=== PATIENT | female | born 1975 | race African-American/Black ===

== ENCOUNTER 2017-03-10 05:54 | Inpatient (IN) | payer OTHER ==
[2017-03-10] MEDS ORDERED: ceFOXitin 2 GM IVPREMIX* 2 GM/50 ML BAG IVPB ONE (07:07)
[2017-03-10] MEDS ORDERED: ceFOXitin 2 GM IVPREMIX* 2 GM/50 ML BAG ONE (07:24)
[2017-03-10] MEDS ORDERED: Sodium Citrate/Citric Acid* 15 ML UDC ONE (07:25)
[2017-03-10] MEDS ORDERED: Naloxone* 0.4 MG/ML 1 ML VIAL IV PRN ×2 (07:37→09:46)
[2017-03-10] MEDS ORDERED: Morphine PF AMP (0.5MG/ML)* 5 MG/10 ML AMP ONE (08:00)
[2017-03-10] MEDS ORDERED: Phenylephrine INJ* 10 MG/ML 1 ML VIAL (10 MG) ONE (08:35)
[2017-03-10] MEDS ORDERED: OXYTOCIN* 10 UNITS/ML 1 ML VIAL ONE (08:35)
[2017-03-10] MEDS ORDERED: Acetaminophen TAB* 325 MG PO PRN (09:38)
[2017-03-10] MEDS ORDERED: Glycerin ADULT SUPP PR PRN (09:38)
[2017-03-10] MEDS ORDERED: Dibucaine 1% 28.35 GM TUBE PR PRN (09:38)
[2017-03-10] MEDS ORDERED: Zolpidem TAB* 5 MG PO PRN (09:38)
[2017-03-10] MEDS ORDERED: Witch Hazel PAD* JAR TOPICAL PRN (09:38)
[2017-03-10] MEDS ORDERED: Nalbuphine* 20 MG/ML 1 ML VIAL IV PRN (09:46)
[2017-03-10] MEDS ORDERED: oxyCODONE/Acetamin 5/325 MG* TAB PO PRN (09:46)
[2017-03-10] MEDS ORDERED: Ondansetron INJ* 2 MG/ML VIAL IV PRN (09:46)
[2017-03-10] MEDS: Ibuprofen TAB* 400 MG PO SCH ×2 (11:57→19:48)
[2017-03-10] MEDS: Simethicone TAB* 80 MG TAB.CHEW PO SCH ×2 (14:34→17:31)
[2017-03-10] MEDS: Docusate CAP* 100 MG PO SCH (14:34)
[2017-03-11] MEDS ORDERED: oxyCODONE/Acetamin 5/325 MG* TAB PO PRN ×2 (02:00)
[2017-03-11] MEDS: Docusate CAP* 100 MG PO SCH ×3 (05:38→20:08)
[2017-03-11] MEDS: Simethicone TAB* 80 MG TAB.CHEW PO SCH ×4 (05:39→20:08)
[2017-03-11] MEDS: Ibuprofen TAB* 400 MG PO SCH (05:42)
[2017-03-11] MEDS ORDERED: Ferrous Gluconate TAB* 324 MG TAB PO SCH (09:00)
[2017-03-11 09:56] LABS: ABS Basophils 0.1 10^3/ul (0-0.2); ABS Eosinophils 0.4 10^3/ul (0-0.6); ABS Lymphocytes 1.7 10^3/ul (1.0-4.8); ABS Monocytes 0.6 10^3/ul (0-0.8); ABS Neutrophils 11.1 10^3/ul (1.5-7.7); ABS Nucleated RBC 0 10^3/ul; Eosinophil % 2.6 % (0-6); Hematocrit 34 % (35-47); Hemoglobin 11.4 g/dl (12.0-16.0); Lymphocyte % 12.4 % (25-47); Mean Corpuscular HGB Conc 34 g/dl (31-36); Mean Corpuscular Hemoglobin 34 pg (27-31); Mean Corpuscular Volume 102 fL (80-97); Mean Platelet Volume 8 um3 (7.4-10.4); Nucleated Red Blood Cells % 0.1; Platelet Count 358 10^3/ul (150-450); Red Blood Count 3.31 10^6/ul (4.0-5.4); Red Cell Distribution Width 15 % (10.5-15); White Blood Count 13.9 10^3/ul (3.5-10.8)
--- NOTE | 2017-03-11 15:05 | OP ---
DATE OF OPERATION: 03/10/17 - ROOM #[id number] DATE OF : 73 SURGEON: Kashif Gonsalves MD CHECK WRITING MACHINE OPERATOR: Kennedy Medellin MD ANESTHESIA: Spinal. PRE-OP DIAGNOSES: Intrauterine at 39 weeks, prior section, and desires surgical sterilization. POST-OP DIAGNOSES: Intrauterine at 39 weeks, prior section, and desires surgical sterilization. OPERATIVE PROCEDURE: Repeat low transverse section and bilateral fimbriectomy for sterilization. ESTIMATED BLOOD LOSS: 600 cc. SPECIMENS SENT TO PATHOLOGY: Bilateral tube of fimbriae and cord blood samples. FLUIDS: She received 1700 cc of IV crystalloid fluid. URINE OUTPUT: Clear, 500 cc. FINDINGS: Delivery of a male weighing 8 pounds 7 ounces with Apgars of 8 and 9 with clear fluid with placenta which was grossly intact with a 3-vessel cord noted. The uterus, adnexa, bowel, and bladder were all within normal limits and there were no complications. DESCRIPTION OF PROCEDURE: The patient was taken to the operating room where she was identified. She was placed on the operating table where a spinal anesthetic was obtained without difficulty. She was then placed in the supine position with a leftward tilt, prepped and draped in normal sterile fashion. A Pfannenstiel skin incision was made with a knife and carried to the underlying layer of fascia. The fascia was then nicked in the midline and extended laterally with curved Sarah scissors. The fascia was then grasped superiorly and inferiorly with Adolph clamps and dissected off sharply from the rectus muscle. The rectus muscle was in the midline bluntly. The peritoneum was identified, grasped with pickups, and entered sharply with Metzenbaum scissors and extended superiorly and inferiorly sharply. A bladder blade was inserted into the patient's abdomen. A bladder flap was created using Metzenbaum scissors over which the bladder blade was then reinserted. A low transverse uterine incision was made with a knife, extended laterally with bandage scissors. The amniotic sac was ruptured, the 's head was then grasped and delivered atraumatically. The rest of the 's body was then delivered. The cord was clamped and cut and was handed off to awaiting meter shop superintendent. Cord bloods were obtained. The placenta was removed manually. The uterus was then exteriorized, clear off all clot and debris using moist laparotomy sponges. The uterine incision was then closed using 0 Polysorb suture in a running locked fashion with a second imbricating layer of 0 Polysorb suture. Hemostasis was noted at the uterine incision. At this point, we proceeded to perform a bilateral fimbriectomy in the usual fashion. A portion of the right and left fimbriae was sent to Pathology. The uterus was then returned to patient's abdomen, the gutters were then cleared of all clot and debris using moist laparotomy sponges. All the sponges and instruments were removed from the patient's abdomen. The peritoneum was then closed using 3-0 Polysorb suture in a running fashion. The fascia was closed using 0 Polysorb suture in a running fashion. The skin was closed with 4-0 Monocryl subcuticular stitch. The patient tolerated the procedure well. Sponge , lap, and needle counts were correct x2. She was then transferred to recovery room area in stable condition. [id number] #: [id number] RUSTAM
[2017-03-12] MEDS: Ibuprofen TAB* 600 MG PO PRN ×2 (06:50→21:34)
[2017-03-12] MEDS: Docusate CAP* 100 MG PO SCH ×4 (08:58→21:34)
[2017-03-12] MEDS: Simethicone TAB* 80 MG TAB.CHEW PO SCH ×4 (08:58→21:34)
[2017-03-13 07:57] VITALS: BP 124/93
[2017-03-13] MEDS: Docusate CAP* 100 MG PO SCH (08:52)
[2017-03-13] MEDS: Ibuprofen TAB* 600 MG PO PRN (08:52)
[2017-03-13] MEDS: Simethicone TAB* 80 MG TAB.CHEW PO SCH (08:53)
== END 2017-03-13 11:54 | disposition home or self-care (01) | DRG 540 ==
LOC: MCHOB 05:54
PROVIDERS: ADMIT Obstetrics & Gynecology; ATTEND Obstetrics & Gynecology
PROC: 4A1HXCZ Monitoring of Products of Conception, Cardiac Rate, External Approach (ICD-10-PCS; 2017-03-10)
PROC: 0UB70ZZ Excision of Bilateral Fallopian Tubes, Open Approach (ICD-10-PCS; 2017-03-10)
PROC: 10D00Z1 Extraction of Products of Conception, Low, Open Approach (ICD-10-PCS; principal; 2017-03-10 07:57)
DX: O34.211 Maternal care for low transverse scar from previous cesarean delivery (principal); F17.210 Nicotine dependence, cigarettes, uncomplicated; O99.334 Smoking (tobacco) complicating childbirth; Z30.2 Encounter for sterilization; Z3A.39 39 weeks gestation of pregnancy; Z37.0 Single live birth
CPT/HCPCS: 36415; 85025; 88302; A9270-GY; J0694; J2300; J2405; J2590